=== PATIENT | female | born 1995 | race Caucasian/White ===

== ENCOUNTER 2021-01-20 05:24 | Emergency (ER) | payer SELFPAY ==
[~2021-01-20] VITALS: Ht 162.6 cm; Wt 63.5 kg
[2021-01-20 05:36] VITALS: BP 134/78
--- NOTE | 2021-01-20 07:09 | NUR ---
pt ambulated to bed 11.
--- NOTE | 2021-01-20 07:30 | NUR ---
X-Ray at bedside.
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
--- NOTE | 2021-01-20 07:37 | NUR ---
ERMD IN ROOM FOR US.
[2021-01-20] MEDS ORDERED: ACETAMINOPHEN 325 MG TAB PO ONE (07:45)
[2021-01-20] MEDS ORDERED: ACETAMINOPHEN 325 MG TAB ONE (07:48)
--- NOTE | 2021-01-20 07:53 | NUR ---
PT GIVEN JELLO, WATER AND PUDDING AT THIS TIME.
[2021-01-20] MEDS ORDERED: IBUP-2213 PO (08:13)
[2021-01-20 08:23] VITALS: BP 134/78
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
== END 2021-01-20 08:23 ==
LOC: MED 05:24
DX: S20.319A Abrasion of unspecified front wall of thorax, initial encounter (principal); S80.212A Abrasion, left knee, initial encounter; S80.211A Abrasion, right knee, initial encounter; F10.129 Alcohol abuse with intoxication, unspecified; Z02.89 Encounter for other administrative examinations; Z79.899 Other long term (current) drug therapy; V89.2XXA Person injured in unspecified motor-vehicle accident, traffic, initial encounter; Y93.89 Activity, other specified; Y92.89 Other specified places as the place of occurrence of the external cause; Y99.8 Other external cause status
CPT/HCPCS: 71045; 71120; 99284